=== PATIENT | female | born 1940 | race Caucasian/White ===

== ENCOUNTER → 2017-01-15 | Outpatient (CLI) | payer MEDICARE, BC ==
[~2017-01-15] MED LIST: AMOX-291 PO; ATOR10TA9 PO; CALC-534 PO; CARB15DR7 EACHEYE; CHOL200024 PO; FLUT15.88 NS; HYDR-3237 PO; IBUP-1221 PO; MELA1TAB22 PO; MULT-717 PO; MV-M1TAB29 PO; NAPR220C2 PO; OMEG-69 PO; [UNRECOGNIZED DRUG - OTHER] EACHEYE; [UNRECOGNIZED DRUG - OTHER] PO; potassium PO
== END | disposition home or self-care (01) ==
LOC: STAR 11:29
PROVIDERS: ATTEND Internal Medicine Geriatric Medicine
DX: Z01.818 Encounter for other preprocedural examination (principal); R94.31 Abnormal electrocardiogram [ECG] [EKG]; K86.2 Cyst of pancreas; Z88.5 Allergy status to narcotic agent
CPT/HCPCS: 93005

== ENCOUNTER 2017-01-19 05:39 | Day surgery (SDC) | payer MEDICARE, BC ==
[~2017-01-19] VITALS: Ht 163.8 cm; Wt 110.4 kg
[2017-01-19] MEDS ORDERED: LACTATED RINGERS 1,000 ML IV SCH (06:17)
[2017-01-19 06:22] VITALS: BP 121/85
[2017-01-19] MEDS ORDERED: morphine SULFATE 10 MG/ML, 1ML IV PRN (07:00)
[2017-01-19] MEDS ORDERED: LABETALOL 5MG/ML, 20ML IV PRN (07:00)
[2017-01-19] MEDS ORDERED: FENTANYL PF 100 MCG/2ML IV PRN (07:00)
[2017-01-19] MEDS ORDERED: HYDROmorphone 1 MG/ML, 1ML IV PRN (07:00)
[2017-01-19] MEDS ORDERED: MIDAZOLAM 1 MG/ML, 2ML IV PRN (07:00)
[2017-01-19] MEDS ORDERED: MEPERIDINE/PF 25MG/0.5ML IVPush PRN (07:00)
[2017-01-19] MEDS ORDERED: MIDAZOLAM 1 MG/ML, 2ML ONE (07:07)
[2017-01-19] MEDS ORDERED: FENTANYL PF 100 MCG/2ML ONE ×2 (07:07→07:08)
[2017-01-19] MEDS ORDERED: PROPOFOL 10 MG/ML, 20ML ONE (07:47)
[2017-01-19] MEDS ORDERED: GLYCOPYRROLATE 0.2MG/1ML, 5ML ONE (07:47)
[2017-01-19] MEDS ORDERED: DEXAMETHASONE 4 MG/ML, 1ML ONE (07:47)
[2017-01-19] MEDS ORDERED: ROCURONIUM 10 MG/ML ONE (07:47)
== END 2017-01-19 09:45 ==
LOC: OUT 05:39
PROVIDERS: ATTEND Internal Medicine Geriatric Medicine
DX: K22.10 Ulcer of esophagus without bleeding (principal); K86.2 Cyst of pancreas; K31.89 Other diseases of stomach and duodenum; Z88.5 Allergy status to narcotic agent; Z88.8 Allergy status to other drugs, medicaments and biological substances
CPT/HCPCS: 43239; 43259; 88305; J1100; J2250; J2704; J3010; J7120; J3490

== ENCOUNTER → 2018-03-04 | Outpatient (CLI) | payer MEDICARE, BC ==
[~2018-03-04] MED LIST changes: +ALEN70TA3 PO; +VIT1TABL32 PO
== END | disposition home or self-care (01) ==
LOC: STAR 11:19
PROVIDERS: ATTEND Internal Medicine Geriatric Medicine
DX: Z01.818 Encounter for other preprocedural examination (principal)
CPT/HCPCS: 93005

== ENCOUNTER 2018-03-08 06:50 | Day surgery (SDC) | payer MEDICARE, BC ==
[~2018-03-08] VITALS: Ht 163.8 cm; Wt 113.3 kg
[2018-03-08] MEDS ORDERED: LACTATED RINGERS 1,000 ML IV SCH (07:15)
[2018-03-08 07:50] VITALS: BP 127/74
[2018-03-08] MEDS ORDERED: PROPOFOL 50 ML ONE (07:50)
[2018-03-08] MEDS ORDERED: PROPOFOL 10 MG/ML, 20ML ONE (08:57)
[2018-03-08] MEDS ORDERED: FENTANYL PF 100 MCG/2ML IV PRN (09:30)
[2018-03-08] MEDS ORDERED: ONDANSETRON 2MG/ML, 2ML IV PRN (09:30)
[2018-03-08] MEDS ORDERED: PANTOPRAZOLE 40 MG IV ONE (09:30)
[2018-03-08] MEDS ORDERED: MIDAZOLAM 1 MG/ML, 2ML IV PRN (09:30)
== END 2018-03-08 10:45 | disposition home or self-care (01) ==
LOC: OUT 06:50
PROVIDERS: ATTEND Internal Medicine Geriatric Medicine
DX: K22.10 Ulcer of esophagus without bleeding (principal); K86.2 Cyst of pancreas; E66.01 Morbid (severe) obesity due to excess calories; Z68.41 Body mass index [BMI] 40.0-44.9, adult; Z88.6 Allergy status to analgesic agent; Z88.5 Allergy status to narcotic agent
CPT/HCPCS: 43237; 43239; 88305; C9113; J2704; J7120

== ENCOUNTER 2019-09-08 13:03 | Outpatient (CLI) | payer MEDICARE, BC ==
[~2019-09-08 13:03] MED LIST changes: +FLUT15.845 NS; -FLUT15.88 NS
== END 2019-09-08 23:59 | disposition home or self-care (01) ==
LOC: STAR 13:03
PROVIDERS: ATTEND Internal Medicine Geriatric Medicine
DX: Z01.818 Encounter for other preprocedural examination (principal); I44.4 Left anterior fascicular block
CPT/HCPCS: 93005

== ENCOUNTER 2019-09-12 05:44 | Day surgery (SDC) | payer MEDICARE, BC ==
[~2019-09-12] VITALS: Ht 163.8 cm; Wt 112.0 kg
[2019-09-12] MEDS ORDERED: LACTATED RINGERS 1,000 ML IV SCH (06:42)
[2019-09-12 06:48] VITALS: BP 121/84
[2019-09-12] MEDS ORDERED: LIDOCAINE-MPF 1%, 2ML INFIL ONE (07:00)
[2019-09-12] MEDS ORDERED: CHLORHEXIDINE 15 ML UDC MM ONE (07:00)
[2019-09-12] MEDS ORDERED: FENTANYL PF 100 MCG/2ML ONE (07:28)
[2019-09-12] MEDS ORDERED: FENTANYL PF 100 MCG/2ML IV PRN (07:30)
[2019-09-12] MEDS ORDERED: NEOSTIGMINE 1 MG/ML, 10ML ONE (08:05)
[2019-09-12] MEDS ORDERED: PROPOFOL 10 MG/ML, 20ML ONE (08:05)
[2019-09-12] MEDS ORDERED: SUCCINYLCHOLINE 20 MG/ML, 10ML ONE (08:05)
[2019-09-12] MEDS ORDERED: ROCURONIUM 10MG/ML,5ML ONE (08:05)
[2019-09-12] MEDS ORDERED: CEFAZOLIN 1,000 MG ONE (08:05)
[2019-09-12] MEDS ORDERED: ONDANSETRON 2MG/ML, 2ML ONE (08:05)
[2019-09-12] MEDS ORDERED: DEXAMETHASONE 4 MG/ML, 1ML ONE (08:05)
[2019-09-12] MEDS ORDERED: GLYCOPYRROLATE 0.2MG/1ML, 5ML ONE (08:05)
== END 2019-09-12 09:45 | disposition home or self-care (01) ==
LOC: OUT 05:44
PROVIDERS: ATTEND Internal Medicine Geriatric Medicine
DX: Z12.89 Encounter for screening for malignant neoplasm of other sites (principal); E78.5 Hyperlipidemia, unspecified; Z88.5 Allergy status to narcotic agent; Z91.048 Other nonmedicinal substance allergy status; Z80.0 Family history of malignant neoplasm of digestive organs
CPT/HCPCS: 43239; 43259; 88305; J0330; J1100; J2405; J2704; J3010; J7120; U0001; J0690; J2710